=== PATIENT | female | born 1970 | race Caucasian/White ===

== ENCOUNTER → 2017-05-24 | Outpatient (CLI) | payer BC ==
[~2017-05-24] MED LIST: ALPR0.25 PO; FLUO20CA42 PO; HYDR-3812 PO; HYDR-3874 PO; IBUP-1773 PO; iron PO
--- NOTE | 2017-05-24 16:06 | Diagnostic Imaging Report ---
EXAMINATION: Pelvic ultrasound. INDICATION: Menorrhagia. FINDINGS: The previous pelvic ultrasound exam of 06/10/2011 noted that the uterus was mildly enlarged but failed to show any sign of fibroid formation. There did appear to be a 4.1 x 3.3 cm complicated cyst associated with the right ovary. On this study, the uterus is nongravid and mildly enlarged measuring 9.2 x 6.2 x 4.8 cm. There is still no focal mass involving the uterus to suggest a fibroid. The endometrium is not thickened measuring 5 mm. The right ovary could not be identified due to overlying bowel gas. Left ovary is unremarkable. There is no solid pelvic mass or free fluid collection noted. IMPRESSION: 1. The uterus is mildly enlarged but appears similar in size to the prior exam. There is still no evidence for a fibroid or for an acute pelvic abnormality. 2. The right ovary is not visualized. Dictated by: Dictated on workstation # [id number]
== END ==
LOC: RAD 13:40
PROVIDERS: ATTEND Obstetrics & Gynecology
DX: N92.0 Excessive and frequent menstruation with regular cycle (principal); Z98.891 History of uterine scar from previous surgery
CPT/HCPCS: 76830; 76856

== ENCOUNTER 2017-06-01 10:24 | Outpatient (CLI) | payer BC ==
[~2017-06-01] VITALS: Ht 165.1 cm; Wt 126.1 kg
[2017-06-01 10:36] VITALS: BP 132/75
[2017-06-01] MEDS ORDERED: iron PO (10:40)
[2017-06-01] MEDS ORDERED: ALPR0.25 PO (10:40)
[2017-06-01 11:00] LABS: BILIRUBIN,URINE NEGATIVE (NEGATIVE); KETONES,URINE NEGATIVE (NEGATIVE); LEUKOCYTE ESTERASE ,URINE 3+ (NEGATIVE); NITRITE,URINE NEGATIVE (NEGATIVE); PH,URINE 6 (5-9); PROTEIN,URINE 1+ (NEGATIVE); UROBILINOGEN,URINE 1 MG/DL (NORMAL)
[2017-06-01 11:06] LABS: BASOPHILS # (AUTO) 0.1 10^3/uL (0.0-0.1); BASOPHILS % (AUTO) 1 % (0-10); EOSINOPHILS # (AUTO) 0.2 10^3/uL (0.0-0.3); EOSINOPHILS % (AUTO) 2 % (0-10); LYMPHOCYTES # (AUTO) 2.4 X 10^3 (1.0-4.0); LYMPHOCYTES % (AUTO) 27 % (12-44); MEAN CORPUSCULAR HEMOGLOBIN 19 PG (25-34); MEAN CORPUSCULAR HGB CONC 27 G/DL (32-36); MEAN CORPUSCULAR VOLUME 69 FL (80-99); MEAN PLATELET VOLUME 9.8 FL (7.4-10.4); MONOCYTES # (AUTO) 0.7 X 10^3 (0.0-1.0); MONOCYTES % (AUTO) 8 % (0-12); NEUTROPHILS # (AUTO) 5.4 X 10^3 (1.8-7.8); NEUTROPHILS % (AUTO) 62 % (42-75); PLATELET COUNT 346 10^3/uL (130-400); RED BLOOD COUNT 4.97 10^6/uL (4.35-5.85); RED CELL DISTRIBUTION WIDTH 24.3 % (10.0-14.5); WHITE BLOOD COUNT 8.7 10^3/uL (4.3-11.0)
[2017-06-01 11:17] LABS: SQUAMOUS EPITHELIAL CELL,UR >50 /HPF
== END 2017-06-01 10:55 | disposition home or self-care (01) ==
LOC: PREOP 10:24
PROVIDERS: ATTEND Obstetrics & Gynecology
DX: Z01.812 Encounter for preprocedural laboratory examination (principal); Z11.2 Encounter for screening for other bacterial diseases; N92.0 Excessive and frequent menstruation with regular cycle; D50.9 Iron deficiency anemia, unspecified
CPT/HCPCS: 36415; 81000; 85025; 86850; 86900; 86901; 87081

== ENCOUNTER 2017-06-06 07:05 | Day surgery (SDC) | payer BC ==
[2017-06-06] VITALS (9 sets, daily range): BP systolic 88–145; BP diastolic 45–95
[~2017-06-06] VITALS: Ht 165.1 cm; Wt 126.1 kg
[~2017-06-06 07:05] MED LIST changes: -FLUO20CA42 PO; -HYDR-3812 PO; -HYDR-3874 PO; -IBUP-1773 PO
[2017-06-06] MEDS: LACTATED RINGERS 1,000 ML IV PRN ×4 (07:20→10:40)
[2017-06-06] MEDS ORDERED: ceFAZolin 1 GM/NS 50 ML IVPB IV ONE ×2 (07:30)
[2017-06-06] MEDS ORDERED: metroNIDAZOLE 500 MG/100 ML IVPB (PRE-MIX) IV ONE (07:30)
[2017-06-06] MEDS ORDERED: CATHETER FLUSH 10 ML SYR IV PRN (07:30)
[2017-06-06] MEDS ORDERED: VASOPRESSIN INJECTION 20 UNIT/ML VIAL ONE ×2 (08:23→08:31)
[2017-06-06] MEDS ORDERED: NS (IVPB) 100 ML ONE (08:24)
--- NOTE | 2017-06-06 08:24 | Progress Note-Pre Operative ---
Pre-Operative Progress Note H&P Reviewed The H&P was reviewed, patient examined and no changes noted. Date Seen by Provider: Jun 06, 2017 Time Seen by Provider: 08:00 Date H&P Reviewed: Jun 06, 2017 Time H&P Reviewed: 08:00 Pre-Operative Diagnosis: menorrhagia, h/o cs and jj salpingectomy, anemia ( blood loss and fe def) CHAVA COBURN DO Jun 06, 2017 08:24
[2017-06-06] MEDS ORDERED: fentaNYL INJECTION 100 MCG/2 ML AMP ONE (08:44)
[2017-06-06] MEDS ORDERED: LACTATED RINGERS 1,000 ML IV ONE ×3 (08:57→12:10)
[2017-06-06] MEDS ORDERED: MIDAZOLAM 2 MG/2 ML (VERSED) VIAL ONE ×2 (09:18→10:05)
[2017-06-06] MEDS ORDERED: proPOfol 200 MG/20 ML (DIPRIVAN) VIAL IV ONE (09:35)
[2017-06-06] MEDS ORDERED: KETAMINE HCL 100 MG/ML 5 ML VIAL ONE (10:30)
[2017-06-06] MEDS: ESTROGENS CONJ. CREAM 30 GM (PREMARIN) TUBE ONE ×2 (10:49→11:24)
[2017-06-06] MEDS ORDERED: LIDOCAINE PF 2% 5 ML (XYLOCAINE) VIAL ONE (11:20)
[2017-06-06] MEDS: KETOROLAC 30 MG/ML VIAL IV SCH ×3 (11:20→23:47)
[2017-06-06] MEDS ORDERED: PROMETHAZINE INJ 25 MG/ML (PHENERGAN) AMP ONE (11:25)
[2017-06-06] MEDS ORDERED: HYDROcodone/APAP 5 MG/325 MG (LORTAB) TAB PO PRN (11:30)
[2017-06-06] MEDS ORDERED: ONDANSETRON 4 MG/2 ML (SDV) Z0FRAN IV PRN ×2 (11:30→12:15)
[2017-06-06] MEDS ORDERED: morphine INJ 10 MG/ML 1ML (SYR OR VIAL) IV PRN (11:30)
[2017-06-06] MEDS ORDERED: BENZOCAINE/MENTHOL (DERMOPLAST) 56 ML CAN TP PRN (11:30)
--- NOTE | 2017-06-06 11:36 | Operative Report ---
Operative Report Date of Procedure/Surgery Jun 06, 2017 Surgeon (s) CHAVA COBURN DO Soil Technologist (s): AMARIS Ingram kennel assistant necessary to retract important neurovascular str Post-Operative Diagnosis Menorrhagia, BMik 49, anemia, previous history of cs and bilateral salpingectomy Procedure Performed Total vagina hysterectomy Description of Procedure Anesthesia Type: Spinal (and epidural) Estimated blood loss (mL): 400 Specimen(s) collected/removed uterus Description of the Procedure with informed consent, the patient was taken to the operating room where spinal anesthesia was found to be adequate. An epidural was also placed to allow for post operative pain management She was then prepped and draped in the usual sterile fashion in the dorsolithotomy position. A Almaguer catheter was placed in the bladder. A weighted speculum was placed in the vagina. There was descensus and a small cystocele. The anterior cervix was grasped with a tenaculum. The cervix was injected with dilute vasopressin in a circumferential fashion. This was then incised with a Bovie at the cervico vaginal junction. I then pushed back the vaginal epithelium from the cervix. I was unable to enter the anterior culdesac so I entered the posterior culdesac with Hernandes scissors and then placed the Adriana speculum. The uterosacral ligaments bilaterally with Z clamps and the incision and secured with 2-0 Vicryl. I then clamped the uterine arteries bilaterally with Z clamps, transected and ligated with 2-0 Vicryl bilaterally. She has previous has bilateral salpingectomy. I was now able to enter the anterior culdesac with Metzenbaum scissors and now pushed back the bladder with raytec sponged and inserted the Lisa retractor to hold back the bladder. I was able to visualize the left ovary and it appeared normal. The right ovary was not visualized. It was high in the pelvis but no obvious masses were noted. I now clamped the uteroovarian ligaments bilaterally with Z clamps, then transected and ligated with 2-0 Vicryl bilaterally. The uterus was sent for pathology. There were no abnormalities noted. I now secured each apex with 2-0 Vicryl bilaterally and then closed the cuff with 2-0 Vicryl in a running fashion. Findings of the Procedure Slightly enlarged, boggy uterus, minimal uterine descensus, scarring of the anterior culdesac consistent with previous section, absence of bilateral tubes. Left ovary was seen and palpated but the right was not. Allergies and Home Medications Allergies Coded Allergies: No Known Drug Allergies (Unverified , 06/22/17) Home Medications Alprazolam 0.25 Mg Tablet, 0.25 MG PO HS PRN for anxiety/sleep, #30 Prescribed by: CHAVA COBURN on 06/07/17 1327 Fluoxetine HCl 20 Mg Capsule, 20 MG PO DAILY, #90 Ref 3 Prescribed by: CHAVA COBURN on 06/07/17 1327 Ibuprofen 600 Mg Tablet, 600 MG PO Q6H, #60 Prescribed by: CHAVA COBURN on 06/07/17 1327 [iron] , 65 MG PO BID, (Reported) CHAVA COBURN DO Jun 06, 2017 11:36
[2017-06-06] MEDS ORDERED: SUFENTA 0.6MCG/ML BUPIVA 0.125 100 ML ONE (11:42)
[2017-06-06] MEDS ORDERED: BUPIVACAINE 0.5% 30 ML (SENSORCAINE) VIAL ONE (11:56)
[2017-06-06] MEDS ORDERED: PROMETHAZINE INJ 25 MG/ML (PHENERGAN) AMP IVP PRN (12:00)
[2017-06-06] MEDS: EPIDURAL (SUFENTA 0.6MCG/ML BUPIVA 0.125%) 100 ML BAG EPI PRN ×2 (12:05→20:56)
[2017-06-06] MEDS ORDERED: NALOXONE 0.4 MG/ML 1 ML (NARCAN) VIAL IV PRN (12:15)
[2017-06-06] MEDS: LORazepam 1 MG (ATIVAN) TAB PO PRN ×2 (15:47→20:49)
[2017-06-06] MEDS: D5 LR IV SOLUTION 1,000 ML IV SCH ×2 (16:36→23:48)
[2017-06-07 04:00] VITALS: BP 128/74
[2017-06-07] MEDS: D5 LR IV SOLUTION 1,000 ML IV SCH ×2 (04:44→11:43)
[2017-06-07] MEDS: KETOROLAC 30 MG/ML VIAL IV SCH (05:37)
[2017-06-07 06:48] LABS: BASOPHILS % (AUTO) 0 % (0-10); EOSINOPHILS # (AUTO) 0.1 10^3/uL (0.0-0.3); EOSINOPHILS % (AUTO) 1 % (0-10); LYMPHOCYTES % (AUTO) 18 % (12-44); MEAN CORPUSCULAR HEMOGLOBIN 20 PG (25-34); MEAN CORPUSCULAR HGB CONC 27 G/DL (32-36); MEAN CORPUSCULAR VOLUME 74 FL (80-99); MEAN PLATELET VOLUME 10.1 FL (7.4-10.4); MONOCYTES # (AUTO) 0.9 X 10^3 (0.0-1.0); MONOCYTES % (AUTO) 8 % (0-12); NEUTROPHILS # (AUTO) 8.5 X 10^3 (1.8-7.8); NEUTROPHILS % (AUTO) 74 % (42-75); PLATELET COUNT 274 10^3/uL (130-400); RED BLOOD COUNT 3.93 10^6/uL (4.35-5.85); RED CELL DISTRIBUTION WIDTH 26.7 % (10.0-14.5); WHITE BLOOD COUNT 11.5 10^3/uL (4.3-11.0)
[2017-06-07 07:05] LABS: ANION GAP 9 MMOL/L (5-14); BLOOD UREA NITROGEN 6 MG/DL (7-18); BUN/CREATININE RATIO 8; CALCIUM 8.1 MG/DL (8.5-10.1); CARBON DIOXIDE 21 MMOL/L (21-32); CHLORIDE 110 MMOL/L (98-107); CREATININE SERUM 0.75 MG/DL (0.60-1.30); GFR ESTIMATED > 60; GLUCOSE 135 MG/DL (70-105); POTASSIUM 3.6 MMOL/L (3.6-5.0); SODIUM 140 MMOL/L (135-145)
[2017-06-07 07:50] VITALS: BP 126/76
[2017-06-07] MEDS: LORazepam 1 MG (ATIVAN) TAB PO PRN (08:24)
[2017-06-07] MEDS ORDERED: DOCUSATE SODIUM 100 MG (COLACE) CAP PO SCH (09:00)
[2017-06-07] MEDS ORDERED: ENOXAPARIN 40 MG/0.4 ML (LOVENOX) SYR SC SCH (10:01)
[2017-06-07] MEDS ORDERED: IBUPROFEN 600 MG (MOTRIN) TAB PO SCH (11:30)
[2017-06-07 12:20] VITALS: BP 128/80
--- NOTE | 2017-06-07 13:25 | Progress Note-Standard ---
Standard Progress Note Progress Notes/Assess & Plan Date Seen by Provider: Jun 07, 2017 Time Seen by Provider: 13:00 Progress/Assessment & Plan Patient had uncomplicated hysterectomy yesterday. Today, Almaguer is out and she has ambulated minimally. Encourage ambulation and will dc once ambulating and has voided. Vital Sign - Last 12Hours 06/07/17 06/07/17 06/07/17 04:00 07:50 12:20 Temp 97.2 96.9 97.6 Pulse 94 91 94 Resp 18 18 18 B/P (MAP) 128/74 126/76 128/80 Pulse Ox 96 98 96 O2 Delivery Room Air Room Air Laboratory Tests Test 06/06/17 14:12 06/07/17 06:40 Range/Units Hemoglobin 8.6 L 7.8 L 11.5-16.0 G/DL Hematocrit 32 L 29 L 35-52 % White Blood Count 11.5 H 4.3-11.0 10^3/uL Red Blood Count 3.93 L 4.35-5.85 10^6/uL Mean Corpuscular Volume 74 L 80-99 FL Mean Corpuscular Hemoglobin 20 L 25-34 PG Mean Corpuscular Hemoglobin Concent 27 L 32-36 G/DL Red Cell Distribution Width 26.7 H 10.0-14.5 % Platelet Count 274 130-400 10^3/uL Mean Platelet Volume 10.1 7.4-10.4 FL Neutrophils (%) (Auto) 74 42-75 % Lymphocytes (%) (Auto) 18 12-44 % Monocytes (%) (Auto) 8 0-12 % Eosinophils (%) (Auto) 1 0-10 % Basophils (%) (Auto) 0 0-10 % Neutrophils # (Auto) 8.5 H 1.8-7.8 X 10^3 Lymphocytes # (Auto) 2.0 1.0-4.0 X 10^3 Monocytes # (Auto) 0.9 0.0-1.0 X 10^3 Eosinophils # (Auto) 0.1 0.0-0.3 10^3/uL Basophils # (Auto) 0.0 0.0-0.1 10^3/uL Sodium Level 140 135-145 MMOL/L Potassium Level 3.6 3.6-5.0 MMOL/L Chloride Level 110 H 98-107 MMOL/L Carbon Dioxide Level 21 21-32 MMOL/L Anion Gap 9 5-14 MMOL/L Blood Urea Nitrogen 6 L 7-18 MG/DL Creatinine 0.75 0.60-1.30 MG/DL Estimat Glomerular Filtration Rate > 60 BUN/Creatinine Ratio 8 Glucose Level 135 H 70-105 MG/DL Calcium Level 8.1 L 8.5-10.1 MG/DL Final Diagnosis menorrhagia anemia, chronic and acute blood loss CHAVA OCBURN DO Jun 07, 2017 13:25
[2017-06-07] MEDS ORDERED: HYDR-3812 PO (13:27)
[2017-06-07] MEDS ORDERED: IBUP-1773 PO (13:27)
[2017-06-07] MEDS ORDERED: FLUO20CA42 PO (13:27)
[2017-06-07] MEDS ORDERED: ALPR0.25 PO (13:27)
--- NOTE | 2017-06-07 13:29 | Discharge Inst-Women's Service ---
Discharge Inst-Women's Serv Depart Medication/Instructions New, Converted or Re-Newed RX: RX on Chart Instructions nothing in the vagina for 6 weeks. no driving for 7 days, no lifting over 25 lbs Final Diagnosis menorrhagia anxiety history of section Consults/Follow Up Additional Follow Up: Yes (2 weeks for cbc and 6 weeks for exam) Activity Activity: Activity as Tolerated Driving Instructions: No Driving for 1 Week NO SMOKING: NO SMOKING Nothing Inside Vagina: No Douching, No [place], No Tampons Diet Discharge Diet: No Restrictions Symptoms to Report to : Swelling Increased, Bleeding Excessive, Pain Increased, Fever Over 101 Degrees F, Vaginal Bleeding Increase, Vaginal Discharge Foul For Any Problems or Questions: Contact Your Physician Skin/Wound Care Bathing Instructions: CHAVA Foote DO Jun 07, 2017 13:29
--- NOTE | 2017-06-07 14:28 | Anesthesia-Regional Post-Op ---
Regional Patient Condition Mental Status: Alert, Oriented x3 Circulation: Same as Pre-Op Headache: Absent Sensation: Full Recovery Motor Block: Absent Post Op Complications Complications None Follow Up Care/Instructions Patient Instructions None needed. Anesthesia/Patient Condition Patient is doing well, no complaints, stable vital signs, no apparent adverse anesthesia problems. No complications reported per nursing. Patient is happy with how well the CSE worked. She is dressed and ready for discharge. EMMETT CHAVEZ CRNA Jun 07, 2017 14:28
[2017-06-08] MEDS ORDERED: ENOXAPARIN 40 MG/0.4 ML (LOVENOX) SYR SC SCH (09:00)
[2017-06-27] MEDS ORDERED: IBUP-1773 PO (11:34)
[2017-06-27] MEDS ORDERED: HYDR-3874 PO (11:34)
[2017-06-27] MEDS ORDERED: ALPR0.25 PO (11:56)
== END 2017-06-07 14:04 | disposition home or self-care (01) ==
LOC: SDC 07:05 → EDSTATUS 09:00 → WS 12:25 → SDC 06-07 14:04
PROVIDERS: ATTEND Obstetrics & Gynecology
DX: C54.1 Malignant neoplasm of endometrium (principal); D50.0 Iron deficiency anemia secondary to blood loss (chronic); D62 Acute posthemorrhagic anemia; F17.210 Nicotine dependence, cigarettes, uncomplicated; E66.01 Morbid (severe) obesity due to excess calories; Z68.42 Body mass index [BMI] 45.0-49.9, adult
CPT/HCPCS: 36415; 80048; 84703; 85014; 85018; 85025; 86850; 86900; 86901; 86920; 88309; 88341; 88342; 94664